=== PATIENT | female | born 1945 | race Caucasian/White ===

== ENCOUNTER 2023-11-19 18:26 | Inpatient (IN) ==
[2023-11-19] MEDS: Atropine 1 MG/ML INJ 1 ML VIAL IV PUSH ONE (18:58)
[2023-11-19] MEDS: NS 0.9% 500 ml BAG 500 ML IV ONE (19:00)
[2023-11-19 19:02] LABS: ABS Lymphocytes 0.5 10^3/uL (1.0-4.8); ABS Monocytes 0.4 10^3/uL (0.0-0.9); ABS Neutrophils 8.7 10^3/uL (1.5-7.6); Eosinophil % 0.2 %; Hematocrit 35.2 % (35-45); Lymphocyte % 5.6 %; Mean Corpuscular Hemoglobin 31.8 pg (27-33); Mean Corpuscular Volume 93.6 fL (80-97); Mean Platelet Volume 7.9 fL (7.5-11.2); Platelet Count 158 10^3/uL (150-450); Red Blood Count 3.76 10^6/uL (3.63-4.92); White Blood Count 9.7 10^3/uL (3.8-11.8)
[2023-11-19] MEDS ORDERED: Norepinephrine 4 MG/250mL D5W 4,000 MCG/250 ML BAG IV ONE ×2 (19:04→21:28)
[2023-11-19] MEDS: Norepinephrine 4 MG/250mL D5W 4,000 MCG/250 ML BAG IV SCH (19:11)
[2023-11-19 19:27] LABS: High Sens Troponin Baseline 10 pg/mL (<15)
[2023-11-19 20:03] LABS: PCO2 Arterial 31 mmHg (35-45); PO2 Arterial 194 mmHg (80-100)
[2023-11-19 20:09] LABS: ALT 18 U/L (7-52); AST 20 U/L (13-39); Albumin 3.9 g/dL (3.2-5.2); Albumin/Globulin Ratio 1.7 (1-3); Alcohol, S < 13 mg/dL (<13); Alkaline Phosphatase 85 U/L (35-149); Anion Gap 23 mmol/L (2-16); C Reactive Protein 61.86 mg/L (<8.01); CO2 Carbon Dioxide 13 mmol/L (22-32); Calcium 8.6 mg/dL (8.6-10.3); Chloride 98 mmol/L (101-111); Creatinine, Serum 12.04 mg/dL (0.51-0.95); Globulin 2.3 g/dL (2-4); Glucose 128 mg/dL (70-100); Magnesium 2.9 mg/dL (1.9-2.7); Potassium 6.7 mmol/L (3.5-5.0); Sodium 134 mmol/L (135-145); Total Bilirubin 0.3 mg/dL (0.2-1.0); Total Protein 6.2 g/dL (6.4-8.9); eGFR CKD-EPI 2.9 (>60)
[2023-11-19] MEDS ORDERED: Sodium Bicarbonate 8.4% VIAL 1 MEQ/ML 50 ml VIAL (50 meq) ONE (20:11)
[2023-11-19] MEDS: CALCIUM GLUCONATE 1GM/50ML NS 1 GM/50 ML BAG IV ONE ×3 (20:14→21:05)
[2023-11-19] MEDS: Sodium Bicarb 8.4% Vial 50 ML 150 MEQ in D5W 1000 ml BAG 850 ML IV ONE (20:20)
[2023-11-19 20:21] LABS: Blood Urea Nitrogen 211 mg/dL (6-24); TSH Ultra Thyroid Stim Horm 3.15 mcIU/mL (0.34-5.60)
[2023-11-19] MEDS: Sodium Bicarbonate 8.4% VIAL 1 MEQ/ML 50 ml VIAL (50 meq) IV ONE (20:22)
[2023-11-19] MEDS: Sodium Bicarbonate 8.4% SYR 50 ml SYRINGE IV ONE (20:22)
[2023-11-19 20:36] LABS: High Sensitivity Troponin 1 Hr 11 pg/mL (<15); Urine Appearance Extra Turbid; Urine Bilirubin Negative (Negative); Urine Blood 2+ (Negative); Urine Glucose Negative (Negative); Urine Ketones Trace (Negative); Urine Nitrite Negative (Negative); Urine Protein 3+ (>=300 mg/dL) (Negative); Urine Specific Gravity 1.024 (1.002-1.030); Urine Urobilinogen Negative (Negative)
[2023-11-19 20:41] LABS: Urine Bacteria 3+ /HPF (Absent); Urine Red Blood Cell 3+(>10/hpf) /HPF (0-Trace); Urine Squamous Epithelial Cell Present /HPF (Absent); Urine White Blood Cell 3+(>20/hpf) /HPF (0-Trace)
[2023-11-19 20:42] LABS: Urine Color Yellow
[2023-11-19] MEDS: EPINEPHrine Titratable IV 5 MG/250 mL IV SCH (21:05)
[2023-11-19] MEDS: Sodium Polystyrene ORAL.SUSP 15 GM/60 ML BTL PO ONE ×2 (21:20)
[2023-11-19 21:26] LABS: Free T4 0.81 ng/dL (0.61-1.12)
[2023-11-19 21:30] LABS: Total T3 58 ng/dL (87-178)
[2023-11-19 21:40] LABS: Hepatitis B Surface Antigen Nonreactive (Nonreactive)
[2023-11-19] MEDS: fentaNYL 100 mcg/2 ml 50 MCG/ML VIAL IV SLOW PU PRN (21:56)
[2023-11-19 21:58] LABS: Hepatitis B Surface Ab Immune (Immune)
[2023-11-19] MEDS: Norepinephrine *QUAD STRENGTH* 16 mg/250 mL NS PREMIX (ICU ONLY) IV SCH (23:15)
[2023-11-20] MEDS: fentaNYL 100 mcg/2 ml 50 MCG/ML VIAL ONE (00:02)
[2023-11-20 00:24] LABS: Calcium 8.4 mg/dL (8.6-10.3); Creatinine, Serum 11.41 mg/dL (0.51-0.95); Potassium 5.6 mmol/L (3.5-5.0); eGFR CKD-EPI 3.1 (>60)
[2023-11-20] MEDS ORDERED: Dextrose 50% Syringe 50 ml 25 GM/50 ML SYRINGE IV PUSH PRN (00:29)
[2023-11-20] MEDS: Lactated Ringers 1000 ml BAG 1,000 ML IV ONE (00:45)
[2023-11-20 01:21] LABS: Magnesium 2.5 mg/dL (1.9-2.7)
[2023-11-20] MEDS: cefTRIAXone 1 gm/50 mL D5W 1 GM/50 ML BAG IV ONE (01:36)
[2023-11-20] MEDS: Norepinephrine 16 MG/250mL NS 16,000 MCG/250 ML BAG IV SCH (01:41)
[2023-11-20] MEDS: Heparin 5000 UNITS/ML 1 mL VIAL SUBCUT SCH ×2 (01:44→08:57)
[2023-11-20] MEDS: Sodium Bicarb 8.4% Vial 50 ML 150 MEQ in D5W 1000 ml BAG 850 ML IV SCH (02:39)
[2023-11-20 04:26] LABS: ABS Basophils 0.1 10^3/uL (0.0-0.1); ABS Eosinophils 0.1 10^3/uL (0.0-0.5); ABS Lymphocytes 0.8 10^3/uL (1.0-4.8); ABS Neutrophils 10.7 10^3/uL (1.5-7.6); ABS Nucleated RBC 0.01 10^3/ul; Eosinophil % 0.5 %; Hematocrit 33.9 % (35-45); Hemoglobin 11.8 g/dL (11.5-14.3); Lymphocyte % 6.6 %; Mean Corpuscular Hemoglobin 31.5 pg (27-33); Mean Corpuscular Hgb Conc 34.9 g/dL (31-36); Mean Corpuscular Volume 90.4 fL (80-97); Mean Platelet Volume 8.2 fL (7.5-11.2); Nucleated Red Blood Cells % 0.1 %/100WBC (0.0-0.8); Platelet Count 162 10^3/uL (150-450); Red Blood Count 3.75 10^6/uL (3.63-4.92); Red Cell Distribution Width 13.6 % (12-17); White Blood Count 12.6 10^3/uL (3.8-11.8)
[2023-11-20 05:00] LABS: PCO2 Arterial 32 mmHg (35-45); PO2 Arterial 112 mmHg (80-100)
[2023-11-20 05:10] LABS: Calcium 8.2 mg/dL (8.6-10.3); Creatinine, Serum 11.09 mg/dL (0.51-0.95); Magnesium 2.3 mg/dL (1.9-2.7); Potassium 4.8 mmol/L (3.5-5.0); eGFR CKD-EPI 3.3 (>60)
[2023-11-20] MEDS: NS 0.9% 1000 ml BAG 1,000 ML IV SCH (06:08)
[2023-11-20] MEDS ORDERED: NS 0.9% 1000 ml BAG 100 ML IV PRN (10:14)
[2023-11-20] MEDS ORDERED: NS 0.9% 1000 ml BAG 200 ML IV PRN (10:14)
[2023-11-20] MEDS ORDERED: Albumin Human 25% 25 GM/100 ML BTL IV PRN (10:14)
[2023-11-20] MEDS: Heparin 1,000 UNIT/ML 10 ml (10,000 UNITS) CATHLAB/DIALYSIS DIALYSIS PRN (11:45)
[2023-11-20 11:50] LABS: C Reactive Protein 63.32 mg/L (<8.01); Rheumatoid Factor < 10 IU/mL (<15)
[2023-11-20 12:05] LABS: HIV 4th Generation Nonreactive (Nonreactive)
[2023-11-20 12:18] LABS: Hepatitis B Surface Antigen Nonreactive (Nonreactive)
[2023-11-20 13:31] LABS: Hepatitis C Antibody Reactive (Negative)
[2023-11-20 18:54] LABS: Calcium 7.2 mg/dL (8.6-10.3); Creatinine, Serum 4.45 mg/dL (0.51-0.95); Potassium 3.6 mmol/L (3.5-5.0); eGFR CKD-EPI 9.7 (>60)
[2023-11-21 00:48] LABS: Calcium 7.3 mg/dL (8.6-10.3); Creatinine, Serum 3.97 mg/dL (0.51-0.95); Potassium 3.7 mmol/L (3.5-5.0); eGFR CKD-EPI 11.2 (>60)
[2023-11-21] MEDS: cefTRIAXone 1 gm/50 mL D5W 1 GM/50 ML BAG IV SCH (02:07)
[2023-11-21 04:39] LABS: ABS Eosinophils 0.1 10^3/uL (0.0-0.5); ABS Monocytes 0.7 10^3/uL (0.0-0.9); ABS Neutrophils 4.9 10^3/uL (1.5-7.6); ABS Nucleated RBC 0.01 10^3/ul; Eosinophil % 1.9 %; Hematocrit 28.3 % (35-45); Hemoglobin 10.2 g/dL (11.5-14.3); Lymphocyte % 14.6 %; Mean Corpuscular Hemoglobin 32.5 pg (27-33); Mean Corpuscular Volume 90.3 fL (80-97); Mean Platelet Volume 7.6 fL (7.5-11.2); Nucleated Red Blood Cells % 0.1 %/100WBC (0.0-0.8); Platelet Count 89 10^3/uL (150-450); Red Blood Count 3.13 10^6/uL (3.63-4.92); Red Cell Distribution Width 13.6 % (12-17); White Blood Count 6.8 10^3/uL (3.8-11.8)
[2023-11-21 04:50] LABS: Calcium 7.4 mg/dL (8.6-10.3); Creatinine, Serum 3.56 mg/dL (0.51-0.95); Magnesium 1.5 mg/dL (1.9-2.7); Potassium 3.7 mmol/L (3.5-5.0); eGFR CKD-EPI 12.7 (>60)
[2023-11-21] MEDS: Magnesium Sulfate 2 gm BAG 2 GM/50 ML BAG IVPB ONE (11:45)
[2023-11-21] MEDS: Ondansetron 4 mg VIAL 2 MG/ML 2 ml VIAL IV PRN (12:06)
[2023-11-21 12:55] LABS: RBC Morphology Normal (Normal)
[2023-11-21] MEDS: Pantoprazole VIAL 40 MG VIAL IV SCH (13:45)
[2023-11-21 14:13] LABS: Urine Appearance No Cx Turbid (Clear); Urine Bilirubin No Culture Negative (Negative); Urine Blood No Culture 3+ (Negative); Urine Color No Culture Yellow; Urine Glucose No Culture Negative (Negative); Urine Ketones No Culture Negative (Negative); Urine Leukocytes No Culture 500 (3+) Leu/uL (Negative); Urine Nitrite No Culture Negative (Negative); Urine Protein No Culture 1+ (>=30 mg/dL) (Negative); Urine Specific Gravity No Cx 1.013 (1.002-1.030); Urine Urobilinogen No Cx Negative (Negative); Urine pH No Culture 5.5 (5.0-8.0)
[2023-11-21 14:27] LABS: UR Microalbumin (mg/L) 120.2 mg/L; Urine Creatinine 135.26 mg/dL; Urine Creatinine Concentration 135.26 mg/dL (20.00-320.00); Urine Microalbumin/Creatinine 88.8 mcg/mg (<31)
[2023-11-21 14:33] LABS: Ur Squamous Epithelial No Cx Present /HPF (Absent); Urine Bacteria No Culture 1+ /HPF (Absent); Urine Hyaline Casts No Culture Present /HPF (Absent); Urine Red Blood Cell No Cult 3+(>10/hpf) /HPF (0-Trace); Urine White Blood Cell No Cult 3+(>20/hpf) /HPF (0-Trace)
[2023-11-21 14:34] LABS: ABS Eosinophils 0.1 10^3/uL (0.0-0.5); ABS Lymphocytes 0.6 10^3/uL (1.0-4.8); ABS Monocytes 0.6 10^3/uL (0.0-0.9); ABS Neutrophils 4.5 10^3/uL (1.5-7.6); ABS Nucleated RBC 0.01 10^3/ul; Hematocrit 27.2 % (35-45); Hemoglobin 9.7 g/dL (11.5-14.3); Lymphocyte % 10.9 %; Mean Corpuscular Hemoglobin 32.7 pg (27-33); Mean Corpuscular Hgb Conc 35.8 g/dL (31-36); Mean Corpuscular Volume 91.5 fL (80-97); Mean Platelet Volume 7.8 fL (7.5-11.2); Nucleated Red Blood Cells % 0.1 %/100WBC (0.0-0.8); Platelet Count 77 10^3/uL (150-450); Red Blood Count 2.97 10^6/uL (3.63-4.92); Red Cell Distribution Width 13.9 % (12-17); White Blood Count 5.8 10^3/uL (3.8-11.8)
[2023-11-21 14:55] LABS: Calcium 7.3 mg/dL (8.6-10.3); Creatinine, Serum 1.42 mg/dL (0.51-0.95); Potassium 3.1 mmol/L (3.5-5.0); eGFR CKD-EPI 38.3 (>60)
[2023-11-21] MEDS: Metoclopramide 5 MG/ML VIAL (10 mg) ONE (16:01)
[2023-11-21] MEDS: KCL 20 MEQ/100 ML IVPREMIX 20 MEQ/100 ML BAG IV ONE (16:01)
[2023-11-21] MEDS: Metoclopramide 5 MG/ML VIAL (10 mg) IV SLOW PU ONE (16:06)
[2023-11-21 18:26] LABS: ABS Eosinophils 0.1 10^3/uL (0.0-0.5); ABS Lymphocytes 0.8 10^3/uL (1.0-4.8); ABS Monocytes 0.7 10^3/uL (0.0-0.9); ABS Neutrophils 5.2 10^3/uL (1.5-7.6); ABS Nucleated RBC 0.01 10^3/ul; Eosinophil % 1.6 %; Hematocrit 29.2 % (35-45); Hemoglobin 10.3 g/dL (11.5-14.3); Lymphocyte % 11.4 %; Mean Corpuscular Hemoglobin 32.4 pg (27-33); Mean Corpuscular Hgb Conc 35.1 g/dL (31-36); Mean Corpuscular Volume 92.2 fL (80-97); Mean Platelet Volume 7.9 fL (7.5-11.2); Nucleated Red Blood Cells % 0.1 %/100WBC (0.0-0.8); Platelet Count 75 10^3/uL (150-450); Red Blood Count 3.17 10^6/uL (3.63-4.92); Red Cell Distribution Width 13.6 % (12-17); White Blood Count 6.8 10^3/uL (3.8-11.8)
[2023-11-22] MEDS: Scopolamine 1 mg/72hr PATCH TRANSDERM SCH (00:19)
[2023-11-22 01:34] LABS: Calcium 7.5 mg/dL (8.6-10.3); Creatinine, Serum 1.67 mg/dL (0.51-0.95); Potassium 3.2 mmol/L (3.5-5.0); eGFR CKD-EPI 31.6 (>60)
[2023-11-22 05:39] LABS: ABS Eosinophils 0.3 10^3/uL (0.0-0.5); ABS Monocytes 0.7 10^3/uL (0.0-0.9); ABS Neutrophils 3.7 10^3/uL (1.5-7.6); ABS Nucleated RBC 0.01 10^3/ul; Hematocrit 28.1 % (35-45); Hemoglobin 9.8 g/dL (11.5-14.3); Lymphocyte % 17.1 %; Mean Corpuscular Hemoglobin 32.1 pg (27-33); Mean Corpuscular Hgb Conc 34.9 g/dL (31-36); Mean Corpuscular Volume 91.9 fL (80-97); Mean Platelet Volume 7.7 fL (7.5-11.2); Nucleated Red Blood Cells % 0.1 %/100WBC (0.0-0.8); Platelet Count 79 10^3/uL (150-450); Red Blood Count 3.06 10^6/uL (3.63-4.92); Red Cell Distribution Width 13.6 % (12-17); White Blood Count 5.7 10^3/uL (3.8-11.8)
[2023-11-22 06:14] LABS: Anion Gap 16 mmol/L (2-16); Blood Urea Nitrogen 35 mg/dL (6-24); CO2 Carbon Dioxide 24 mmol/L (22-32); Calcium 7.9 mg/dL (8.6-10.3); Chloride 106 mmol/L (101-111); Creatinine, Serum 1.69 mg/dL (0.51-0.95); Glucose 68 mg/dL (70-100); Magnesium 1.9 mg/dL (1.9-2.7); Potassium 3.2 mmol/L (3.5-5.0); Sodium 146 mmol/L (135-145); eGFR CKD-EPI 31.1 (>60)
[2023-11-22] MEDS: KCL 20 MEQ/100 ML IVPREMIX 20 MEQ/100 ML BAG IV ONE (09:24)
[2023-11-22 12:13] LABS: Kappa Free Light Chain 8.89 mg/dL; Lambda Free Light Chain, S 6.73 mg/dL
[2023-11-22 15:26] LABS: Folate > 20.00 ng/mL (5.90-24.80)
[2023-11-22 15:27] LABS: Vitamin B12 908 pg/mL (180-914)
[2023-11-22 18:23] LABS: Complement C3 95 mg/dL (75 - 175)
[2023-11-22] MEDS: fentaNYL 100 mcg/2 ml 50 MCG/ML VIAL IV SLOW PU PRN (18:31)
[2023-11-22] MEDS: fentaNYL 100 mcg/2 ml 50 MCG/ML VIAL ONE (18:32)
[2023-11-23] MEDS: Acetaminophen IV 1 GM/100ML 1,000 MG/100 ML BAG IV ONE ×2 (05:29→05:38)
[2023-11-23 05:39] LABS: ABS Eosinophils 0.4 10^3/uL (0.0-0.5); ABS Lymphocytes 0.9 10^3/uL (1.0-4.8); ABS Monocytes 0.6 10^3/uL (0.0-0.9); ABS Nucleated RBC 0.01 10^3/ul; Eosinophil % 8.2 %; Hemoglobin 9.8 g/dL (11.5-14.3); Mean Corpuscular Hemoglobin 32.1 pg (27-33); Mean Corpuscular Hgb Conc 34.8 g/dL (31-36); Mean Corpuscular Volume 92.2 fL (80-97); Mean Platelet Volume 7.7 fL (7.5-11.2); Nucleated Red Blood Cells % 0.1 %/100WBC (0.0-0.8); Platelet Count 84 10^3/uL (150-450); Red Blood Count 3.04 10^6/uL (3.63-4.92)
[2023-11-23 06:07] LABS: Calcium 8.1 mg/dL (8.6-10.3); Creatinine, Serum 1.65 mg/dL (0.51-0.95); Magnesium 1.7 mg/dL (1.9-2.7); Potassium 3.3 mmol/L (3.5-5.0)
[2023-11-23] MEDS: fentaNYL 100 mcg/2 ml 50 MCG/ML VIAL IV SLOW PU PRN (06:31)
[2023-11-23] MEDS ORDERED: Polyethylene Glycol 3350 17 GM PACKET PO PRN (09:15)
[2023-11-23] MEDS ORDERED: Senna TAB 8.6 mg TAB PO PRN (09:15)
[2023-11-23] MEDS: Magnesium Sulfate 2 gm BAG 2 GM/50 ML BAG IVPB ONE (10:31)
[2023-11-23] MEDS: Potassium Chlor 20 meq TAB.ER PO ONE (10:38)
[2023-11-23 20:51] LABS: C-ANCA Negative (Negative); P-ANCA Positive (Negative)
[2023-11-24] MEDS: Acetaminophen IV 1 GM/100ML 1,000 MG/100 ML BAG IV ONE (01:05)
[2023-11-24] MEDS: Triamcinolone 0.025% OINT 15 GM TUBE TOPICAL ONE (01:18)
[2023-11-24] MEDS: Lactated Ringers 1000 ml BAG 1,000 ML IV SCH (05:00)
[2023-11-24 05:13] LABS: ABS Eosinophils 0.5 10^3/uL (0.0-0.5); ABS Lymphocytes 1.3 10^3/uL (1.0-4.8); ABS Monocytes 0.6 10^3/uL (0.0-0.9); ABS Neutrophils 3.4 10^3/uL (1.5-7.6); ABS Nucleated RBC 0.01 10^3/ul; Eosinophil % 9.1 %; Hematocrit 27.1 % (35-45); Hemoglobin 9.5 g/dL (11.5-14.3); Lymphocyte % 21.7 %; Mean Corpuscular Hemoglobin 32.5 pg (27-33); Mean Corpuscular Volume 92.9 fL (80-97); Mean Platelet Volume 7.8 fL (7.5-11.2); Nucleated Red Blood Cells % 0.2 %/100WBC (0.0-0.8); Platelet Count 94 10^3/uL (150-450); Red Blood Count 2.92 10^6/uL (3.63-4.92); Red Cell Distribution Width 13.6 % (12-17); White Blood Count 5.8 10^3/uL (3.8-11.8)
[2023-11-24 06:01] LABS: Calcium 7.9 mg/dL (8.6-10.3); Creatinine, Serum 1.66 mg/dL (0.51-0.95); Magnesium 1.9 mg/dL (1.9-2.7); Potassium 3.5 mmol/L (3.5-5.0); eGFR CKD-EPI 31.8 (>60)
[2023-11-24] MEDS ORDERED: fentaNYL 100 mcg/2 ml 50 MCG/ML VIAL IV SLOW PU PRN (08:01)
[2023-11-24] MEDS: Lactated Ringers 1000 ml BAG 1,000 ML IV ONE (08:16)
[2023-11-24 08:49] LABS: Ferritin 596.3 ng/mL (11-307)
[2023-11-24] MEDS: Calamine LOTION BTL TOPICAL PRN (21:41)
[2023-11-25 05:56] LABS: ABS Eosinophils 0.5 10^3/uL (0.0-0.5); ABS Monocytes 0.6 10^3/uL (0.0-0.9); ABS Neutrophils 3.1 10^3/uL (1.5-7.6); Calcium 7.8 mg/dL (8.6-10.3); Creatinine, Serum 1.35 mg/dL (0.51-0.95); Eosinophil % 9.3 %; Hematocrit 26.4 % (35-45); Hemoglobin 9.2 g/dL (11.5-14.3); Lymphocyte % 19.4 %; Magnesium 1.4 mg/dL (1.9-2.7); Mean Corpuscular Hemoglobin 32.1 pg (27-33); Mean Corpuscular Hgb Conc 34.9 g/dL (31-36); Mean Corpuscular Volume 92.1 fL (80-97); Mean Platelet Volume 8.1 fL (7.5-11.2); Platelet Count 99 10^3/uL (150-450); Potassium 3.3 mmol/L (3.5-5.0); Red Blood Count 2.87 10^6/uL (3.63-4.92); Red Cell Distribution Width 13.2 % (12-17); White Blood Count 5.3 10^3/uL (3.8-11.8); eGFR CKD-EPI 40.7 (>60)
[2023-11-25] MEDS: Potassium Chloride LIQUID 20 MEQ/15 ML LIQUID PO ONE (09:00)
[2023-11-25] MEDS: Magnesium Sulf 4 GM/100 ML IV 4,000 MG/100 ML BAG IVPB ONE (09:00)
[2023-11-26 05:31] LABS: ABS Eosinophils 0.4 10^3/uL (0.0-0.5); ABS Lymphocytes 1.1 10^3/uL (1.0-4.8); ABS Monocytes 0.5 10^3/uL (0.0-0.9); ABS Neutrophils 3.4 10^3/uL (1.5-7.6); ABS Nucleated RBC 0.01 10^3/ul; Eosinophil % 7.4 %; Hematocrit 27.5 % (35-45); Hemoglobin 9.6 g/dL (11.5-14.3); Lymphocyte % 19.9 %; Mean Corpuscular Hemoglobin 32.2 pg (27-33); Mean Corpuscular Hgb Conc 34.9 g/dL (31-36); Mean Corpuscular Volume 92.2 fL (80-97); Nucleated Red Blood Cells % 0.1 %/100WBC (0.0-0.8); Platelet Count 115 10^3/uL (150-450); Red Blood Count 2.98 10^6/uL (3.63-4.92); Red Cell Distribution Width 13.4 % (12-17); White Blood Count 5.4 10^3/uL (3.8-11.8)
[2023-11-26 05:46] LABS: Calcium 8.3 mg/dL (8.6-10.3); Creatinine, Serum 1.14 mg/dL (0.51-0.95); Magnesium 1.9 mg/dL (1.9-2.7); Potassium 3.6 mmol/L (3.5-5.0); eGFR CKD-EPI 49.9 (>60)
[2023-11-27 08:02] LABS: ABS Eosinophils 0.3 10^3/uL (0.0-0.5); ABS Lymphocytes 1.1 10^3/uL (1.0-4.8); ABS Monocytes 0.5 10^3/uL (0.0-0.9); ABS Neutrophils 4.1 10^3/uL (1.5-7.6); ABS Nucleated RBC 0.01 10^3/ul; Eosinophil % 5.8 %; Hematocrit 28.8 % (35-45); Hemoglobin 10.1 g/dL (11.5-14.3); Lymphocyte % 18.1 %; Mean Corpuscular Hemoglobin 32.4 pg (27-33); Mean Corpuscular Hgb Conc 35.1 g/dL (31-36); Mean Corpuscular Volume 92.4 fL (80-97); Mean Platelet Volume 7.6 fL (7.5-11.2); Nucleated Red Blood Cells % 0.2 %/100WBC (0.0-0.8); Platelet Count 140 10^3/uL (150-450); Red Blood Count 3.12 10^6/uL (3.63-4.92); Red Cell Distribution Width 13.5 % (12-17); White Blood Count 6.1 10^3/uL (3.8-11.8)
[2023-11-27 08:47] LABS: Calcium 8.3 mg/dL (8.6-10.3); Creatinine, Serum 0.98 mg/dL (0.51-0.95); Magnesium 1.6 mg/dL (1.9-2.7); Potassium 3.2 mmol/L (3.5-5.0); eGFR CKD-EPI 59.8 (>60)
[2023-11-27] MEDS: Magnesium Sulfate 2 gm BAG 2 GM/50 ML BAG IVPB ONE (22:03)
[2023-11-27] MEDS: Potassium Chlor 20 meq TAB.ER PO ONE (22:18)
[2023-11-28 13:49] VITALS: BP 108/46
[2023-11-28 14:46] LABS: HIT ELISA < 0.050 OD (<0.400); Heparin PF4 Antibody Interp Negative (Negative)
== END 2023-11-28 17:00 | disposition home or self-care (01) | DRG 682 ==
LOC: ED 18:26 → ICU 21:00 → SUATTDRO 21:32 → EDHOLD 21:32 → ICU 21:41 → SSU 11-24 08:04
PROVIDERS: ADMIT Student in an Organized Health Care Education/Training Program; ATTEND Hospitalist